=== PATIENT | male | born 1940 | race Caucasian/White ===

== ENCOUNTER → 2016-12-08 | Outpatient (CLI) | payer MEDICARE ==
--- NOTE | 2016-12-09 09:19 | XR ---
EXAMINATION TYPE: XR ribs LT w pa chest xray DATE OF EXAM: 12/08/2016 11:01 AM COMPARISON: NONE HISTORY: Left rib pain TECHNIQUE: PA view of the chest and 4 views of the left ribs submitted. FINDINGS: No evidence of pneumothorax. Heart size normal. Atherosclerotic change aorta. Rib cage appears intact. No acute displaced rib fracture. Vague density left upper lobe. IMPRESSION: 1. No acute displaced rib fracture. There is a vague nodular density in the left upper lobe which may be related to superimposed structures. Either CT chest or bilateral oblique views are recommended
== END | disposition home or self-care (01) ==
LOC: RADXRYALE 09:34
PROVIDERS: ATTEND Family Medicine
DX: R07.81 Pleurodynia (principal)

== ENCOUNTER → 2016-12-16 | Outpatient (CLI) | payer MEDICARE ==
--- NOTE | 2016-12-16 09:47 | CT ---
EXAMINATION TYPE: CT chest wo con DATE OF EXAM: 12/16/2016 7:50 AM COMPARISON: Correlation radiographs 12/08/2016 HISTORY: 76-year-old male abnormal CXR TECHNIQUE: Contiguous axial scanning of the chest without IV contrast. Coronal and sagittal reconstru ctions performed. CT DLP: 345.6 mGycm Automated exposure control for dose reduction was used. FINDINGS: The heart is borderline enlarged without pericardial effusion. Coronary vessel calcifications are pre sent in remarkable for coronary artery disease. Bovine configuration to the aortic arch with moderate atherosclerotic changes in the distal arch and descending thoracic aorta. Large caliber to the main right and left pulmonary arteries at 2.9 and 2.6 cm, respectively, suggesti ng underlying pulmonary arterial hypertension. No thoracic lymphadenopathy. Evaluation of the lungs shows mild to moderate centrilobular emphysema i n the upper to mid lungs and areas of dependent atelectasis. There is some subtle patchy and intersti tial opacity at the inferior lingula, axial image 30 and 36 and mild dependent atelectasis at the yobani g bases. No suspicious pulmonary nodule or mass is identified. Tiny calcified granuloma peripheral ri ght mid lung in the subpleural region. There is a small hiatal hernia. Visualized upper abdomen shows moderate atherosclerotic calcification s continuing into the abdominal aorta and a large partially visualized right renal cyst measuring up to 10.3 cm. Colonic diverticulosis. Bones: No osseous destructive process. There appears to be a subtle nondisplaced fracture of the lef t anterolateral sixth rib, referred to axial image 39 through 42. IMPRESSION: 1. FINDINGS SUSPICIOUS FOR A SUBTLE NONDISPLACED FRACTURE OF THE LEFT ANTEROLATERAL SIXTH RIB. CLINIC ALLY CORRELATE. 2. NO SUSPICIOUS PULMONARY NODULE TO CORRESPOND TO THE RADIOGRAPHIC ABNORMALITY. 3. HOWEVER, THERE IS UNDERLYING COPD WITH MILD TO MODERATE EMPHYSEMA. PULMONARY ARTERIAL HYPERTENSION . 4. SOME PATCHY INTERSTITIAL INFILTRATE IN THE INFERIOR LINGULA COULD REPRESENT A DEVELOPING PNEUMONIA . CORRELATE WITH PATIENT'S SYMPTOMS. 5. SMALL HIATAL HERNIA AND PARTIALLY VISUALIZED LARGE RIGHT RENAL CYST MEASURING UP TO 10.3 CM. COLON IC DIVERTICULOSIS.
== END | disposition home or self-care (01) ==
LOC: RADCTMAIN 07:26
PROVIDERS: ATTEND Family Medicine
DX: J43.9 Emphysema, unspecified (principal); I27.2 Other secondary pulmonary hypertension; R91.8 Other nonspecific abnormal finding of lung field
CPT/HCPCS: 71250

== ENCOUNTER → 2018-07-31 | Outpatient (CLI) | payer MEDICARE ==
--- NOTE | 2018-07-31 08:37 | MR ---
EXAMINATION TYPE: MR knee LT wo con DATE OF EXAM: 07/31/2018 8:25 AM COMPARISON: NONE HISTORY: Pain in left knee TECHNIQUE: Multiplanar, multiecho imaging of the left knee is performed without IV contrast. FINDINGS: There is no significant joint effusion. There is a tiny amount of fluid relating to the pop liteus tendon and musculotendinous junction. This may represent a small ganglion cyst. 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 There is no other significant chondromalacia. Both menisci appear unremarkable. Both the anterior and posterior cruciate ligaments are intact. Both the medial and lateral collateral ligament complexes are intact. Iliotibial band inserts normall y upon Gerdy's tubercle. Both patellar and quadriceps tendons are intact. There is no significant swelling in the Hoffa fat sp sage. There is mild pseudocystic change in the posterior aspect of the medial femoral condyle. IMPRESSION: 1. NO MENISCAL ABNORMALITY. 2. PROBABLE GANGLION CYST RELATED TO THE POPLITEUS TENDON. 3. CHONDROMALACIA DESCRIBED. 4. PSEUDOCYSTIC CHANGE IN THE POSTERIOR ASPECT OF THE MEDIAL FEMORAL CONDYLE.
== END | disposition home or self-care (01) ==
LOC: RADMRIMAIN 07:41
PROVIDERS: ATTEND Orthopaedic Surgery
DX: M94.262 Chondromalacia, left knee (principal)

== ENCOUNTER 2018-09-16 11:30 | Day surgery (SDC) | payer MEDICARE ==
[2018-09-15 08:29] VITALS: BMI 25.1
--- NOTE | 2018-09-15 15:16 | HP ---
HISTORY AND PHYSICAL DATE OF SURGERY: 09/16/2018 Charly Solorzano is an 78-year-old patient seen with progressive left knee pain. We discussed treatment options. He elected to proceed with left knee arthroscopy. Consent regarding the procedure was obtained. PAST MEDICAL HISTORY: Hypertension, hyperlipidemia, gastroesophageal reflux disease. PAST SURGICAL HISTORY: Left shoulder arthroscopy, cataract surgery. DAILY MEDICATIONS: Amlodipine/benazepril, Prilosec, methotrexate. ALLERGIES: NIACIN. SOCIAL HISTORY: He denies tobacco use. PHYSICAL EVALUATION OF THE LEFT KNEE: Range of motion is 0 to 130 degrees. Tenderness medial joint line. Positive medial Nadege's. Ligaments stable. Hip rotation without pain. Distal neurovascular exam is intact. RADIOGRAPHS OF THE LEFT KNEE: Revealed moderate osteoarthritis. An MRI of the left knee revealed chondromalacia. IMPRESSION: Internal derangement, left knee with osteochondral tear versus meniscal tear. PLAN: Left knee arthroscopy with partial meniscectomy versus chondroplasty and debridement. MMODL / IJN: [id number] /
[~2018-09-16 11:30] MED LIST: DEXAMETHASONE SOD PHOSPHATE 10 MG/ML 1 ML VIAL IV ONE; LACTATED RINGERS 1,000 ML IV SCH; LIDOCAINE 1% 20 ML VIAL (10MG/ML) FOR IV START INTRADERMA PRN; ONDANSETRON 4 MG/2 ML VIAL IVP ONE; ceFAZolin 1,000 MG in DEXTROSE/WATER 1 50ML.BAG IVPB ONE; ceFAZolin IN SWFI 2 GM/20 ML SYRINGE IVP ONE
[2018-09-16] MEDS ORDERED: BUPIVACAINE (PF) 0.25% 30 ML VIAL INTRAARTIC ONE ×2 (11:59→13:02)
[2018-09-16] MEDS ORDERED: MIDAZOLAM 2 MG/2 ML VIAL ONE (12:31)
[2018-09-16] MEDS ORDERED: PROPOFOL 10 MG/ML 20 ML VIAL IV ONE (12:31)
[2018-09-16] MEDS ORDERED: fentaNYL (PF) 50 MCG/ML 2 ML AMP ONE (12:31)
[2018-09-16] MEDS ORDERED: LIDOCAINE 1% INJ 10MG/ML (20 ML MDV) ONE (12:31)
--- NOTE | 2018-09-16 13:21 | P.OP ---
Date of Procedure: 09/16/18 Preoperative Diagnosis: Internal derangement left knee Postoperative Diagnosis: 1. Tear medial meniscus left knee 2. Grade 2 chondromalacia medial femoral condyle left knee 3. Reactive synovitis medial, lateral and suprapatellar compartments left knee Procedure(s) Performed: 1. Arthroscopic partial medial meniscectomy left knee 2. Arthroscopic chondroplasty medial femoral condyle left knee 3. Arthroscopic partial synovectomy medial, lateral and suprapatellar compartments left knee Anesthesia: GETA, local Surgeon: Franco Morley Estimated Blood Loss (ml): 5 Pathology: none sent Condition: stable Disposition: PACU Indications for Procedure: 78-year-old patient seen with progressive left knee pain. After treatment options were discussed, he elected to proceed with arthroscopy. Operative Findings: see description of procedure Description of Procedure: Patient was taken to the operative suite. Patient underwent a general anesthetic by the department of anesthesia. Patient was given preoperative antibiotics. The left lower extremity was placed in a well-padded arthroscopic leg tan. The left leg was prepped and draped in the normal sterile orthopedic fashion. A lateral parapatellar and suprapatellar incision was made. Trochars were inserted. Arthroscopy was initiated. Suprapatellar pouch revealed diffuse thick reactive synovitis. The patellofemoral joint appeared to articulate congruently. There was grade 1 chondromalacia with no osteochondral tears. The scope was guided into the medial gutter. No loose bodies or plica were identified. The scope was then guided into the medial compartment. A medial parapatellar incision was made. Trocar inserted followed by probe. There was a tear involving the posterior horn of the medial meniscus. There were grade 2 chondromalacia changes of the medial femoral condyle with some diffuse osteochondral tears present. There was thick reactive synovitis anteriorly. I performed a partial medial meniscectomy down to stable tissue. I performed a chondroplasty of the medial femoral condyle down to stable tissue. I performed a partial synovectomy decompressing the reactive synovitis. The residual meniscus was probed and found to be stable. There was stable osteochondral surface of the medial femoral condyle and good decompression of the synovitis. Scope and probe were then guided into the intercondylar notch. Cruciates were identified, probed and found to be stable. The scope and probe were then guided into lateral compartment. There was some mild fraying of the lateral meniscus. There was reactive synovitis anteriorly. There was no significant chondromalacia present. I debrided that fraying of the meniscus of the motorize shaver. I performed a partial synovectomy decompressing the reactive synovitis in the anterior aspect lateral compartment. There was good decompression of synovitis. The scope was in guided back into the suprapatellar compartment. I introduced a motorized shaver into the suprapatellar compartment. I debrided some piecemeal fragments of meniscus I encountered. I performed a partial synovectomy decompressing the thick reactive synovitis. The shaver was removed. I took one more look on the entire knee, no residual debris. Instruments were now removed from the joint. The joint was infiltrated with .25% Marcaine. Steri-Strips were applied to the portal sites. Sterile dressings were applied. The patient was placed into a ALEX hose. No tourniquet was utilized. The patient was awakened, transferred to a bed and taken to recovery stable satisfactory condition.
[2018-09-16 13:22] VITALS: TEMP 97.3
[2018-09-16 13:52] VITALS: RESP 18
[2018-09-16] MEDS ORDERED: traMADol 50 MG TAB PO ONE (14:15)
[2018-09-16 14:32] VITALS: BP 155/67; PULSE 74
== END 2018-09-16 14:53 | disposition home or self-care (01) ==
LOC: OR 11:30
PROVIDERS: ATTEND Orthopaedic Surgery
DX: M23.322 Other meniscus derangements, posterior horn of medial meniscus, left knee (principal); M22.42 Chondromalacia patellae, left knee; M65.862 Other synovitis and tenosynovitis, left lower leg; M10.9 Gout, unspecified; I10 Essential (primary) hypertension; E78.5 Hyperlipidemia, unspecified; K21.9 Gastro-esophageal reflux disease without esophagitis; M06.9 Rheumatoid arthritis, unspecified; Z79.899 Other long term (current) drug therapy; Z88.5 Allergy status to narcotic agent; Z87.891 Personal history of nicotine dependence; Z86.73 Personal history of transient ischemic attack (TIA), and cerebral infarction without residual deficits
CPT/HCPCS: 29881; J2250; J1100; J2405; J2001; J3010; J2704; J0690

== ENCOUNTER → 2022-07-02 | Outpatient (CLI) | payer MEDICARE ==
--- NOTE | 2022-07-02 07:49 | MR ---
EXAMINATION TYPE: MR Prostate wo/w con DATE OF EXAM: 07/02/2022 COMPARISON: None INDICATION: Malignant neoplasm of prostate, elevated PSA, positive biopsy PSA: 13.40 ng/ml on June 04, 2022 increased from 11.4 on November 26, 2021 Recent Biopsy and Date: May 28, 2021 Pathology Report (If Applicable): Right base atypia. Right midzone atypia. Right lateral apex adenoca rcinoma [place] grade 3+3 = 6 involving 10% of tissue measuring 1 mm in length. Right apex adenocarci noma [place] grade 3+3 = 6 measuring 2.5 mm in length involving 40% of tissue. Left mid zone adenocar cinoma [place] grade 3+3 = 6 involving 10% of tissue measuring 1 mm in length. Left lateral apex atyp ia and PIN. TECHNIQUE: Examination was performed using a 3T MRI without an endorectal coil. Multiparametric imaging was perf ormed with T2 mutliplanar sequences, axial diffusion weighted imaging and dynamic contrast enhanced i maging, utilizing 7 mL intravenous Gadavist gadolinium contrast. FINDINGS: PROSTATE VOLUME: 3.9 cm SI x 3.1 cm AP x 4.2 cm LR Vol= 26.6 cc PSA DENSITY: 0.50 ng/ml/cc Prostate gland normal in size. Some areas of increased T1 signal seen bilaterally which does not luis elate with biopsy over one year earlier. Peripheral zone shows significant decreased T2 signal throughout greatest in the mid to basilar segme nt with area of slight diminished signal ADC mapping involving the right mid zone image 220 series 70 5. No significant increased signal on diffusion-weighted imaging. Central transitional zone shows het erogeneity without discrete suspicious areas of diminished T2 hypointensity or restricted diffusion. Seminal vesicles appear within normal limits. Bladder shows mild to moderate wall thickening and mild trabeculation. No adjacent adenopathy. There are diverticula in the sigmoid colon identified. There is small fat-containing left inguinal hernia. Visualized osseous structures are intact. IMPRESSION: A focus of clinically significant cancer is not identified. Highest Assessment Category: 2 MRI Stage: T1c N0 M0 based on review of pelvic images. False negative rates for MRI range from 5-20% depending on risk profile. Assessment Categories: 1 ? Very low (clinically significant cancer is highly unlikely to be present) 2 ? Low (clinically significant cancer is unlikely to be present) 3 ? Intermediate (the presence of clinically significant cancer is equivocal) 4 ? High (clinically significant cancer is likely to be present) 5 ? Very high (clinically significant cancer is highly likely to be present)
== END | disposition home or self-care (01) ==
LOC: RADMRIMAIN 06:13
PROVIDERS: ATTEND Urology
DX: C61 Malignant neoplasm of prostate (principal)
CPT/HCPCS: 72197; A9585

== ENCOUNTER → 2023-07-08 | Outpatient (CLI) | payer MEDICARE ==
--- NOTE | 2023-07-08 10:17 | MR ---
EXAMINATION TYPE: MR Prostate wo/w con DATE OF EXAM: 07/08/2023 9:17 AM COMPARISON: Prostate MRI 07/02/2022. CLINICAL INDICATION:Male, 83 years old with history of C61 MALIGNANT NEOPLASM OF PROSTATE; Prostate c a, elevated PSA TECHNIQUE: Multi-planar, multi-sequence imaging of the pelvis is performed prior to and following the uncomplicated administration of bolus intravenous gadolinium. CONTRAST: 7 Gadavist Interpretive Criteria: PI-RADS v2.1 SERUM PSA: 20.2 on 06/16/2023 15.2 on 12/06/2022. SURGICAL PATHOLOGY: Positive biopsy 07/16/2022 involving the right mid right apex, left base total score [place] 6. FINDINGS: Prostatic dimensions: 4.1 x 4.2 x 3.3 cm. "Bullet" Volume:37.19 (PSA density=0.54 ng/mL/mL) CENTRAL GLAND (Central and Transition Zones/CZ+TZ): Multiple bilateral, heterogenous appearing hypertrophic stromal nodules, without suspicious lesion. M edian lobe hypertrophy with protrusion into the base of the bladder. (PI-RADS 2) PERIPHERAL ZONE (PZ): There is diffuse low T2 signal with mild elevated DWI and low ADC signal involving the right posterio r peripheral gland the central peripheral gland posteriorly is limited due to bowel gas. Area measure s approximately 14 x 8 mm. There appears to be arterial phase enhancement within this region. (PI-RAD S 4) SEMINAL VESICLES (SV): Symmetric and unremarkable. PERIPROSTATIC TISSUES: Unremarkable. LYMPH NODES: No enlarged pelvic lymph node. REMAINING PELVIS: Bladder wall is within normal limits given distention. No abnormal free or organized intrapelvic fluid collection. No pathologic bowel dilation or mural thickening. Colonic diverticula are present. Bilateral fat containing inguinal hernias, left greater than right. OSSEOUS STRUCTURES: Abnormal low signal in the right pubic symphysis/extending into the right superior pubic ramus measur ing 24 x 13 mm. IMPRESSION: 1. PI-RADS 4 lesion posterior peripheral gland on the right mid gland measuring 14 x 8 mm. The flexo press operator ior peripheral gland evaluation is limited due to bowel gas. 2. Mild BPH, estimated gland volume 37.19 mL. 3. Osseous lesion which is indeterminate in the right pubic symphysis/superior pubic ramus remains pr esent and is similar in size to prior on 03/01/2022. Further evaluation with PET/CT gallium-68 PSMA/sc an may be of benefit to help characterize this lesion.
== END | disposition home or self-care (01) ==
LOC: RADMRIMAIN 07:40
PROVIDERS: ATTEND Urology
DX: C61 Malignant neoplasm of prostate (principal); N40.0 Benign prostatic hyperplasia without lower urinary tract symptoms
CPT/HCPCS: 72197; A9585

== ENCOUNTER → 2023-07-27 | Outpatient (CLI) | payer MEDICARE ==
[2023-07-27 15:55] LABS: Basophils # (A) 0.07 X 10*3/uL (0.00-0.10); Basophils % (A) 0.9 %; Eosinophils # (A) 0.18 X 10*3/uL (0.04-0.35); Eosinophils % (A) 2.3 %; HCT 41.6 % (39.6-50.0); HGB 13.6 g/dL (13.0-17.0); Lymphocytes # (A) 2.17 X 10*3/uL (0.90-5.00); MCH 32.3 pg (27.0-32.0); MCHC 32.7 g/dL (32.0-37.0); MCV 98.8 FL (80.0-97.0); Mean Platelet Volume 9.6 FL (9.5-12.2); Monocytes # (A) 0.58 X 10*3/uL (0.20-1.00); Monocytes % (A) 7.5 %; NRBC Per 100 WBC 0 X 10*3/uL (0.00-0.01); Neutrophils # (A) 4.72 X 10*3/uL (1.80-7.70); Neutrophils % (A) 60.9 %; Platelet Count 254 X 10*3/uL (140-440); RBC 4.21 X 10*6/uL (4.40-5.60); RDW 13.6 % (11.5-14.5); WBC 7.75 X 10*3/uL (4.50-10.00)
[2023-07-27 15:57] LABS: Blood Urea Nitrogen 15.2 mg/dL (9.0-27.0); Calcium 9.8 mg/dL (8.7-10.3); Carbon Dioxide 26.6 mmol/L (21.6-31.8); Chloride 106 mmol/L (96-109); Glucose 90 mg/dL (70-110); Potassium 5.7 mmol/L (3.5-5.5); Sodium 143 mmol/L (135-145)
[2023-07-27 21:15] LABS: Appearance,Urine Clear (Clear); Bilirubin,Urine Negative (Negative); Blood,Urine Negative (Negative); Color,Urine Yellow (Yellow); Ketones,Urine Negative (Negative); Nitrite,Urine Negative (Negative); Specific Gravity,Urine 1.011 (1.001-1.030); Urobilinogen,Urine 0.2 E.U./DL
== END | disposition home or self-care (01) ==
LOC: LABPAT 10:15
PROVIDERS: ATTEND Urology
DX: Z01.812 Encounter for preprocedural laboratory examination (principal); C61 Malignant neoplasm of prostate; R31.29 Other microscopic hematuria
CPT/HCPCS: 80048; 81003; 85025; 87086

== ENCOUNTER 2023-08-04 13:35 | Day surgery (SDC) | payer MEDICARE ==
--- NOTE | 2023-08-04 11:40 | P.HPIHPCON ---
History of Present Illness H&P Date: 08/04/23 Chief Complaint: Prostate cancer This is an 83-year-old male with a history of saurabh 6 prostate cancer on active surveillance. He continues to have an upward trending PSA. Underwent a prostate MRI that showed evidence of a PIRAD 4 lesion along the right mid gland. option of MRI fusion biopsy was discussed. Aware of The risk of bleeding, infection, sepsis. He understood all the risk and agreed to proceed Consent for Procedure: I have explained the operation/procedure to the patient, including the risks, benefits, side effects, alternative therapies (including not receiving the proposed treatment or service), the likelihood of the patient achieving his/her goals, and potential recuperation problems for the procedure/sedation/analgesia, as well as any blood products, if indicated. I also explained to the patient the risks, benefits and side effects of the alternatives, as well as the risks related to not receiving the proposed procedure, care, treatment, or services. Past Medical History Past Medical History: Cancer, Hyperlipidemia, Hypertension, Rheumatoid Arthritis (RA) Additional Past Medical History / Comment(s): gallstone bile duct, ?TIA melanoma and squamous , prostate ca,gout, History of Any Multi-Drug Resistant Organisms: None Reported Past Surgical History: Hernia Repair, Orthopedic Surgery Additional Past Surgical History / Comment(s): lt shoulder rot cuff,rt inguinal hernia ,whipple procedure , lft knee arthroscopy, Past Anesthesia/Blood Transfusion Reactions: No Reported Reaction Additional Past Anesthesia/Blood Transfusion Reaction / Comment(s): no hx blood transfusion Smoking Status: Former smoker - Past Family History Mother Family Medical History: Cancer Additional Family Medical History / Comment(s): skin ca Father Family Medical History: Cancer Additional Family Medical History / Comment(s): lung Sister(s) Family Medical History: Cancer Medications and Allergies Home Medications Medication Instructions Recorded Confirmed Type Aspirin 162 mg PO DAILY 03/18/16 07/30/23 History Omeprazole 20 mg PO DAILY 03/18/16 07/30/23 History Simvastatin [Zocor] 20 mg PO HS 03/18/16 07/30/23 History allopurinoL [Zyloprim] 300 mg PO DAILY 03/18/16 07/30/23 History amLODIPine BESYLATE/BENAZEPRIL 1 cap PO QAM 03/18/16 07/30/23 History [amLODIPine BESYLATE/BENAZEPRIL 10-40 mg] Triamcinolone Acetonide 1 applic TOPICAL DAILY PRN 09/15/18 07/30/23 History [Triamcinolone Acetonide 0.025%] metroNIDAZOLE [metroNIDAZOLE 0.75% 1 applic TOPICAL DAILY PRN 09/15/18 07/30/23 History Gel] Allergies Allergy/AdvReac Type Severity Reaction Status Date / Time niacin Allergy "I turn Verified 07/30/23 15:31 beet red" codeine AdvReac Nausea & Verified 07/30/23 15:31 Vomiting Surgical - Exam - General no distress, no pain - Eyes normal ocular movement, no pale - ENT normal nares, normal mucosa - Respiratory normal expansion, normal respiratory effort - Abdomen Abdomen: soft, non tender Assessment and Plan Assessment: OR for MRI fusion biopsy
[~2023-08-04 13:35] MED LIST changes: -DEXAMETHASONE SOD PHOSPHATE 10 MG/ML 1 ML VIAL IV ONE; +LIDOCAINE 1% (10MG/ML) FOR IV START INTRADERMA PRN; -LIDOCAINE 1% 20 ML VIAL (10MG/ML) FOR IV START INTRADERMA PRN; -ONDANSETRON 4 MG/2 ML VIAL IVP ONE; -ceFAZolin 1,000 MG in DEXTROSE/WATER 1 50ML.BAG IVPB ONE; -ceFAZolin IN SWFI 2 GM/20 ML SYRINGE IVP ONE
[2023-08-04 14:54] VITALS: TEMP 96.9
[2023-08-04] MEDS: GENTAMICIN 120 MG in SODIUM CHLORIDE 0.9% 100 ML IVPB PRN ×2 (14:55→15:16)
[2023-08-04] MEDS ORDERED: PROPOFOL 10 MG/ML 20 ML VIAL IV ONE (16:17)
[2023-08-04] MEDS ORDERED: LIDOCAINE 1% INJ 10MG/ML (20 ML MDV) ONE (16:17)
[2023-08-04 16:55] VITALS: RESP 16
[2023-08-04 17:19] VITALS: BP 102/62; PULSE 62
--- NOTE | 2023-08-11 12:40 | P.OP ---
Date of Procedure: 08/06/23 Preoperative Diagnosis: prostate cancer Postoperative Diagnosis: same Procedure(s) Performed: MRI fusion biopsy of the prostate Estimated Blood Loss (ml): 1 Pathology: other Indications for Procedure: This is an 83-year-old male with a history of saurabh 6 prostate cancer on active surveillance. He continues to have an upward trending PSA. Underwent a prostate MRI that showed evidence of a PIRAD 4 lesion along the right mid gland. option of MRI fusion biopsy was discussed. Aware of The risk of bleeding, infection, sepsis. He understood all the risk and agreed to proceed Description of Procedure: The patient was taken to the operating room and placed in the left lateral decubitus position. The Zesty transrectal ultrasound probe was placed intrarectally. It was then placed within the stand of the [employer] MRI/TRUS Fusion for Prostate Biopsy system. The prostate was imaged in both the axial and sagittal planes, Using the Biopsy gun, 4 biopsies were obtained from the target lesion, there were was one lesions, . The remaining 12 biopsies of the peripheral zone were obtained utilizing a standard template. Once the procedure was completed, the ultrasound probe was removed. The patient tolerated the procedure well was taken [facility]
== END 2023-08-04 17:12 | disposition home or self-care (01) ==
LOC: OR 13:35
PROVIDERS: ATTEND Urology
DX: C61 Malignant neoplasm of prostate (principal); I10 Essential (primary) hypertension; E78.5 Hyperlipidemia, unspecified; M06.9 Rheumatoid arthritis, unspecified; Z85.828 Personal history of other malignant neoplasm of skin; Z79.82 Long term (current) use of aspirin; Z79.899 Other long term (current) drug therapy; Z88.1 Allergy status to other antibiotic agents; Z88.5 Allergy status to narcotic agent; Z88.8 Allergy status to other drugs, medicaments and biological substances; Z87.891 Personal history of nicotine dependence
CPT/HCPCS: 88344; 84132; 88305; 55700; J2001; J1580; J2704

== ENCOUNTER → 2023-09-10 | Outpatient (CLI) | payer MEDICARE ==
--- NOTE | 2023-09-10 16:42 | PE ---
EXAMINATION TYPE: PET CT fusion skull to thigh DATE OF EXAM: 09/10/2023 CLINICAL INDICATION:Male, 83 years old with history of C61 PROSTATE CANCER; TECHNIQUE: Following the intravenous administration of 5.5 mCi of F-18 FDG, whole body images are p erformed from the skull base to the midthigh. Images are reviewed on the computer in the coronal, ax ial, and sagittal planes. Reconstructed rotating images are created on independent workstation and r eviewed on the computer. A non-contrast CT is performed in conjunction with the PET scan. CT DLP: 478 mGycm, Automated exposure control for dose reduction was used. COMPARISON: CT None, PET/CT None, MRI 07/08/2023 FINDINGS: Mediastinal SUV mean is 1.7. Hepatic parenchyma SUV mean is 3.9. SKULL BASE AND NECK: No suspicious radiotracer activity. CHEST, MEDIASTINUM, AND HILAR REGION: No suspicious radiotracer activity. ABDOMEN AND PELVIS: Radiotracer uptake within the posterior prostate gland extending approximately the entire length of t he posterior aspect measuring up to 3.8 x 1.8 cm on PET imaging images. This extends into the right s eminal vesicles. This correlates with MR imaging and is compatible with malignancy. MUSCULOSKELETAL STRUCTURES: No suspicious radiotracer activity. OTHER CT: Bilaterally aphakia with calcified senile scleral plaques. Atherosclerosis at the carotid b ifurcations. Atherosclerosis of the coronary arteries. Aortic valve calcifications. Pneumobilia. Larg e right and small left simple appearing renal cysts. Scattered colonic diverticula. Fatty changes of the left inguinal canal. The urinary bladder is circumferential wall thickening suggestive of chronic bladder outlet obstruction. IMPRESSION: PET imaging correlating with MRI of the prostate with extensive diffuse posterior prostate gland upta ke which extends into the right seminal vesicles. No additional evidence for distant metastatic disea se beyond this at this time.
== END | disposition home or self-care (01) ==
LOC: RADPETMAIN 13:01
PROVIDERS: ATTEND Urology
DX: C61 Malignant neoplasm of prostate (principal)
CPT/HCPCS: 78815; A9596

== ENCOUNTER 2023-10-14 06:15 | Day surgery (SDC) | payer MEDICARE ==
--- NOTE | 2023-10-13 09:34 | P.HPIHPCON ---
History of Present Illness H&P Date: 10/13/23 Chief Complaint: Prostate cancer This is an 83-year-old male with history of Tatamy 7 prostate cancer. Plan is to proceed with androgen deprivation therapy with radiation therapy. Option of SpaceOAR placement was discussed with him. Discussed with him the risk benefit and rationale of doing this. Aware the risk which includes but not limited to bleeding, infection, rectal perforation. Discussed potential of developing rectal toxicity even with a spaceOR. He understood all the risk and agreed to proceed Consent for Procedure: I have explained the operation/procedure to the patient, including the risks, benefits, side effects, alternative therapies (including not receiving the proposed treatment or service), the likelihood of the patient achieving his/her goals, and potential recuperation problems for the procedure/sedation/analgesia, as well as any blood products, if indicated. I also explained to the patient the risks, benefits and side effects of the alternatives, as well as the risks related to not receiving the proposed procedure, care, treatment, or services. Past Medical History Past Medical History: Cancer, Hyperlipidemia, Hypertension, Rheumatoid Arthritis (RA) Additional Past Medical History / Comment(s): Prostate cancer, recent vertigo/inner ear issue, possible TIA, pancreatic cancer 2019, melanoma removed from nose and squamous removed from chest, gout History of Any Multi-Drug Resistant Organisms: None Reported Past Surgical History: Hernia Repair, Orthopedic Surgery Additional Past Surgical History / Comment(s): lt shoulder rot cuff,rt inguinal hernia ,whipple procedure , lft knee arthroscopy, vascetomy, plastic surgery on nose. Past Anesthesia/Blood Transfusion Reactions: No Reported Reaction Additional Past Anesthesia/Blood Transfusion Reaction / Comment(s): Pt has hx whipple procedure. no hx blood transfusion Smoking Status: Former smoker - Past Family History Mother Family Medical History: Cancer Additional Family Medical History / Comment(s): skin ca Father Family Medical History: Cancer Additional Family Medical History / Comment(s): lung Sister(s) Family Medical History: Cancer Additional Family Medical History / Comment(s): Lung cancer Medications and Allergies Home Medications Medication Instructions Recorded Confirmed Type Aspirin 162 mg PO QAM 03/18/16 10/12/23 History Omeprazole 20 mg PO QAM 03/18/16 10/12/23 History Simvastatin [Zocor] 20 mg PO HS 03/18/16 10/12/23 History allopurinoL [Zyloprim] 300 mg PO QAM 03/18/16 10/12/23 History amLODIPine BESYLATE/BENAZEPRIL 1 cap PO QAM 03/18/16 10/12/23 History [amLODIPine BESYLATE/BENAZEPRIL 10-40 mg] Triamcinolone Acetonide 1 applic TOPICAL DAILY PRN 09/15/18 10/12/23 History [Triamcinolone Acetonide 0.025%] metroNIDAZOLE [metroNIDAZOLE 0.75% 1 applic TOPICAL DAILY PRN 09/15/18 10/12/23 History Gel] Multivitamins, Thera [Multivitamin 1 tab PO QAM 10/12/23 10/12/23 History (formulary)] Pancreatin 2000 1 tab PO TID-W/MEALS 10/12/23 10/12/23 History Allergies Allergy/AdvReac Type Severity Reaction Status Date / Time niacin Allergy "I turn Verified 10/12/23 10:12 beet red" codeine AdvReac Nausea & Verified 10/12/23 10:12 Vomiting Surgical - Exam - General no distress, no pain - Eyes normal ocular movement, no pale - ENT normal nares, normal mucosa - Respiratory normal expansion, normal respiratory effort - Abdomen Abdomen: soft, non tender Assessment and Plan Assessment: OR for SpaceOR placement
[2023-10-14] MEDS ORDERED: fentaNYL (PF) 50 MCG/ML 2 ML AMP IV PRN (07:00)
[2023-10-14] MEDS: DEXAMETHASONE SOD PHOSPHATE 4 MG/ML 1 ML VIAL IV ONE (07:07)
[2023-10-14] MEDS: LACTATED RINGERS 1,000 ML IV SCH (07:07)
[2023-10-14] MEDS: ONDANSETRON 4 MG/2 ML VIAL IVP ONE (07:07)
[2023-10-14 07:09] VITALS: TEMP 97.7
[2023-10-14] MEDS ORDERED: PROPOFOL 10 MG/ML 20 ML VIAL IV ONE (07:31)
[2023-10-14] MEDS ORDERED: fentaNYL (PF) 50 MCG/ML 2 ML AMP ONE (07:31)
[2023-10-14] MEDS ORDERED: MIDAZOLAM 2 MG/2 ML VIAL ONE (07:31)
[2023-10-14] MEDS: LIDOCAINE 2% INJ 20 MG/ML SQ ONE ×2 (07:35→07:57)
--- NOTE | 2023-10-14 08:13 | P.OP ---
Date of Procedure: 10/14/23 Preoperative Diagnosis: Prostate cancer Postoperative Diagnosis: Same Procedure(s) Performed: SpaceOAR gel placement Implants: SpaceOAR gel Anesthesia: MAC Surgeon: Mak Christopher Estimated Blood Loss (ml): 0 Pathology: none sent Condition: stable Disposition: PACU Indications for Procedure: This is an 83-year-old male with history of [place] 7 prostate cancer. Plan is to proceed with androgen deprivation therapy with radiation therapy. Option of SpaceOAR placement was discussed with him. Discussed with him the risk benefit and rationale of doing this. Aware the risk which includes but not limited to bleeding, infection, rectal perforation. Discussed potential of developing rectal toxicity even with a spaceOR. He understood all the risk and agreed to proceed Description of Procedure: The patient was taken to the operating room and placed in the dorsolithotomy position, with his legs supported in Hernandez stirrups. The external genitalia was prepped and draped sterilely. The transrectal ultrasound probe was placed intrarectally. The prostate was imaged. The probe was then placed within the stabilizing stand. A spinal needle was advanced under ultrasonic guidance to the level of the urogenital diaphragm, and lidocaine was used to infiltrate the tissues as the needle was withdrawn. Next, the SpaceOAR needle was passed through the midline of the perineum, 1-2 cm anterior to the anal opening. The needle was slowly advanced under ultrasonic guidance until the needle tip was located within the fat plane between the prostate and rectum, at the level of the mid prostate gland. The needle was confirmed to be midline on the axial imaging. A small amount of normal saline was injected for hydrodissection. Next, the SpaceOAR components were mixed and loaded into the Y connector per protocol. The Y connector was then connected to the needle, and the components were injected slowly over a course of approximately 10 seconds. A total of 10 ml was injected. Significant distance was created between the prostate and rectum, as desired. It should be noted that at no point was there any concern of rectal perforation. The needle was withdrawn, as well as the transrectal ultrasound probe, and the procedure was terminated. The patient tolerated the procedure well and was taken to the recovery room in stable condition
[2023-10-14 08:14] VITALS: PULSE 59; RESP 16
[2023-10-14 08:47] VITALS: BP 122/52
== END 2023-10-14 08:42 | disposition home or self-care (01) ==
LOC: OR 06:15
PROVIDERS: ATTEND Urology
DX: C61 Malignant neoplasm of prostate (principal); I10 Essential (primary) hypertension; E78.5 Hyperlipidemia, unspecified; M06.9 Rheumatoid arthritis, unspecified; Z87.891 Personal history of nicotine dependence; Z80.0 Family history of malignant neoplasm of digestive organs; Z80.1 Family history of malignant neoplasm of trachea, bronchus and lung; Z79.82 Long term (current) use of aspirin; Z79.899 Other long term (current) drug therapy
CPT/HCPCS: 55874; C1889; J2001; J2250; J1100; J0690; J2405; J3010; J2704